=== PATIENT | female | born 2000 ===

== ENCOUNTER 2023-09-08 18:17 | Emergency (ER) | payer BC, SELFPAY ==
[2023-09-08 18:23] VITALS: BP 103/53
[2023-09-08 18:38] LABS: % Basophils 0.4 % (0-2); % Eosinophils 1.1 % (0-6); % Immature Granulocytes 0.1 % (0-0.5); % Lymphocytes 31.6 % (20.5-51.1); % Monocytes 10.3 % (1.7-9.3); % Neutrophils 56.5 % (42.2-75.2); Absolute Eosinophils 0.1 10^3/uL (0-0.7); Absolute Lymphocytes 2.3 10^3/uL (1.2-3.4); Absolute Monocytes 0.8 10^3/uL (0.1-0.6); Absolute Neutrophils 4.1 10^3/uL (1.4-6.5); Hemoglobin 11.6 g/dL (12.0-16.0); Mean Corp Hgb Conc. 33.1 g/dL (33.0-37.0); Mean Corpuscular Hgb 29.8 pg (27.0-31.0); Mean Platelet Volume 10.1 fL (7.4-10.4); Nucleated Red Blood Cells % 0 %; Platelet Count 262 10^3/uL (130-400); Red Blood Cell Count 3.89 10^6/uL (4.20-5.40); Red Cell Dist. Width 12.9 % (11.5-14.5); White Blood Cell Count 7.3 10^3/uL (4.8-10.8)
[2023-09-08 19:09] LABS: HCG, Serum Qualitative Screen Negative
[2023-09-08 19:10] LABS: ALT (SGPT) 15 U/L (0-35); AST (SGOT) 22 U/L (14-36); Albumin 4.3 g/dl (3.5-5.0); Alkaline Phosphatase 65 U/L (38-126); Blood Urea Nitrogen 14 mg/dl (7-17); Calcium 9.6 mg/dl (8.4-10.2); Carbon Dioxide 27 mmol/L (22-30); Chloride 105 mmol/L (98-107); Glucose 123 mg/dl (70-99); Sodium 139 mmol/L (135-145); Total Bilirubin 0.3 mg/dl (0.2-1.3); Total Protein 6.9 g/dl (6.3-8.2); eGFR > 60.00
--- NOTE | 2023-09-08 19:59 | ED.GENMED ---
History of Present Illness
General
Chief Complaint: Skin Problem
Time Seen by Provider: 09/08/23 19:37
Travel History
Have you had any contact with someone who has COVID-19?: No
Do you have any symptoms of coronavirus? Fever > 100 degrees, chills, cough, shortness of breath, sore throat, loss of taste or smell, muscle aches, or headache?: No
History of Present Illness
History of Present Illness:
23-year-old female presents the emergency department for evaluation of a suspected tick bite to the right chest wall just inferior to the right breast. She states she did notice a tick on her body but did not notice any pain appointment however
today noted a large target shaped rash to the chest. She does have pain associated with this. Denies any fevers or chills, denies any body aches or muscle aches
Review of Systems
Review of Systems
Allergies reviewed?: Yes
All Other Systems: ROS reviewed and negative except as documented in HPI and ROS
Phy Exam
Physical Exam
Physical Exam:
GEN: Well appearing, NAD, WDWN
HEENT: Oral mucosa moist, no scleral icterus
Cardiac: Regular rate
Lung: No respiratory distress, no tachypnea
MSK: No gross deformity or injuries
Skin: Good color, no pallor or jaundice. Large circular target lesion to R chest wall inferior to the R breast
Neuro: AO x3, moves all extremities freely
Psych: Calm, cooperative
Course
Orders/Labs/Results
Orders:
Orders
09/08/23 18:29
Test Result ONCE
09/08/23 18:33
CMP [Comprehensive Metabolic Panel] Urgent
Complete Blood Count/With Diff Urgent
HCG, Serum Qualitative Screen Urgent
Lyme Progressive Urgent
Abnormal Lab Results
09/08/23
18:33
RBC 3.89 L 10^6/uL
(4.20-5.40)
Hgb 11.6 L g/dL
(12.0-16.0)
Hct 35.0 L %
(37.0-47.0)
Absolute Monos (auto) 0.8 H 10^3/uL
(0.1-0.6)
Monocytes % 10.3 H %
(1.7-9.3)
Glucose 123 H mg/dl
(70-99)
09/08/23 18:33
09/08/23 18:33
Vital Signs
Initial and Last Documented VS:
Initial Vital Signs
Temp Pulse Resp BP Pulse Ox
98.7 F 59 16 103/53 99
09/08/23 18:23 09/08/23 18:23 09/08/23 18:23 09/08/23 18:23 09/08/23 18:23
Last Documented Vital Signs
Temp Pulse Resp BP Pulse Ox
98.7 F 66 16 103/57 99
09/08/23 18:23 09/08/23 20:14 09/08/23 18:23 09/08/23 20:14 09/08/23 18:23
MDM/Problems Addressed
MDM/Problems Addressed:
Patient does have an obvious target lesion, central aspect of the lesion is moderately indurated and tender given concern for potential cellulitis. Nevertheless we will treat for Lyme disease with EM rash, doxycycline for 14 days. Discussed
supportive care and avoidance of excessive sun exposure while on Doxy
*Critical Care Note
Total Time (30-74mins, 75-104mins- exclusive of procedures): Not Applicable
ED Attending Note
-
Portions of this chart may have been created with voice recognition software.� Occasional wrong word or��sound alike� substitutions may have occurred due to the inherent limitations of voice recognition software.
Discharge Plan
Departure
Patient Disposition: Home (Routine Discharge)
Date of Disposition: 09/08/23
Time of Disposition: 19:59
Patient with high blood pressure during this ER visit?: No
Discharge Problem:
Lyme disease with erythema migrans lesion 5 cm or greater in diameter
Instructions: Lyme Disease (DC)
Prescriptions:
New
doxycycline monohydrate 100 mg capsule
100 mg PO BID 14 Days Qty: 28 0RF
Interventions
Interventions:
*Risk Screen - Suicide Last Done: 09/08/23 20:12
*General Assessment Last Done: 09/08/23 20:12
*Neglect/Abuse Screening Last Done: 09/08/23 20:12
*Nursing Disposition Last Done: 09/08/23 20:14
ED-Skin Assessment Last Done: 09/08/23 20:14
Discharge Date and Time
Discharge Date/Time: 09/08/23 20:16
Print Language: AFGHAN
[2023-09-08 20:14] VITALS: BP 103/57
[2023-09-11 15:08] LABS: Lyme Antibody Screen, EIA Negative (Negative)
== END 2023-09-08 20:16 | disposition home or self-care (01) ==
LOC: EMR 18:17
PROVIDERS: Emergency Medicine; EMERGENCY PHYSICIAN Student in an Organized Health Care Education/Training Program
DX: A69.20 Lyme disease, unspecified (principal)
CPT/HCPCS: 99283; 80053; 84703; 85025; 86618